=== PATIENT | male | born 2005 | race Two or more races ===

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

== ENCOUNTER 2024-02-27 13:21 | Emergency (ER) | payer OTHER ==
[~2024-02-27] VITALS: Ht 165.1 cm; Wt 53.2 kg
[~2024-02-27 13:21] MED LIST changes: +POLY17PO62 PO
[2024-02-27 13:28] VITALS: TEMP 99.9
[2024-02-27 13:42] LABS: COVID AG,FIA SOURCE NASAL SWAB
[2024-02-27 14:01] LABS: RAPID GROUP A STREP NEGATIVE (NEGATIVE)
[2024-02-27 14:14] LABS: INFLUENZA TYPE A NEGATIVE FOR TYPE A (NEGATIVE); INFLUENZA TYPE B NEGATIVE FOR TYPE B (NEGATIVE); SARS-COV2 (COVID) ANTIGEN,FIA Negative (Negative)
[2024-02-27] MEDS ORDERED: IBUP-1554 PO (15:01)
[2024-02-27] MEDS ORDERED: GUAIFDM PO (15:01)
[2024-02-27 15:05] VITALS: BP 113/71; PULSE 87; RESP 16
== END 2024-02-27 15:14 | disposition home or self-care (01) ==
LOC: EMS 13:21
DX: J06.9 Acute upper respiratory infection, unspecified (principal); Z90.49 Acquired absence of other specified parts of digestive tract; Z20.822 Contact with and (suspected) exposure to COVID-19
CPT/HCPCS: 87430; 87804; 99283

== ENCOUNTER 2024-04-27 01:12 | Emergency (ER) | payer OTHER ==
[~2024-04-27] VITALS: Ht 167.6 cm; Wt 72.7 kg
[~2024-04-27 01:12] MED LIST changes: +GUAIFDM PO; +IBUP-1554 PO
[2024-04-27 01:16] VITALS: BP 103/56; PULSE 61; RESP 20; TEMP 97.7
[2024-04-27 01:33] LABS: APPEARANCE,URINE CLEAR (CLEAR); BILIRUBIN,URINE NEGATIVE (NEGATIVE); COLOR,URINE COLORLESS (YELLOW); GLUCOSE, URINE (UA) NEGATIVE (NEGATIVE); KETONES,URINE NEGATIVE (NEGATIVE); LEUKOCYTE ESTERASE ,URINE NEGATIVE (NEGATIVE); NITRATE,URINE NEGATIVE (NEGATIVE); OCCULT BLOOD,URINE NEGATIVE (NEGATIVE); PH,URINE 6.5 (5.0-8.0); PROTEIN,URINE NEGATIVE (NEGATIVE); SPECIFIC GRAVITIY, URINE 1.004 (1.003-1.030); UROBILINOGEN,URINE <=1.0 mg/dL (<=1.0)
[2024-04-27] MEDS ORDERED: PHEN-846 PO (03:27)
== END 2024-04-27 03:35 | disposition home or self-care (01) ==
LOC: EMS 01:12
DX: R30.0 Dysuria (principal); Z90.49 Acquired absence of other specified parts of digestive tract
CPT/HCPCS: 81003; 99283

== ENCOUNTER 2024-06-04 04:32 | Emergency (ER) | payer OTHER ==
[~2024-06-04] VITALS: Ht 167.6 cm; Wt 53.6 kg
[~2024-06-04 04:32] MED LIST changes: +PHEN-846 PO
[2024-06-04 04:38] VITALS: TEMP 98.4
[2024-06-04 07:40] LABS: BASOPHILS % (AUTO) 0.6 % (0.0-2.0); EOSINOPHILS % (AUTO) 3.3 % (1.0-6.0); HEMATOCRIT 44.1 % (41-53); HEMOGLOBIN 14.9 g/dL (13.5-17.5); LYMPHOCYTES # (AUTO) 2.4 K/uL (1.0-4.8); LYMPHOCYTES % (AUTO) 38.9 % (22.0-44.0); MEAN CORPUSCULAR HEMOGLOBIN 28.5 pg (26.0-34.0); MEAN CORPUSCULAR HGB CONC 33.9 G/dL (31.0-37.0); MEAN CORPUSCULAR VOLUME 84 fL (80-100); MONOCYTES # (AUTO) 0.5 K/uL (0.1-1.0); MONOCYTES % (AUTO) 7.8 % (2.0-9.0); NEUTROPHILS # (AUTO) 3.1 K/uL (1.8-7.7); NEUTROPHILS % (AUTO) 49.4 % (40.0-70.0); PLATELET COUNT (AUTO) 221 K/uL (150-450); RED BLOOD CELL COUNT(AUTO) 5.24 MIL/uL (4.50-5.90); RED CELL DISTRIBUTION WIDTH 13.4 % (11.5-14.5); WHITE BLOOD COUNT (AUTO) 6.3 K/uL (4.5-11.0)
[2024-06-04 07:53] LABS: ANION GAP 7 mmol/L (8-16); CALCIUM, TOTAL 9.3 mg/dL (8.8-10.5); CARBON DIOXIDE 30 mmol/L (22-29); CHLORIDE 102 mmol/L (98-107); CREATININE 0.83 mg/dL (0.60-1.30); GLOMERULAR FILTR. RATE CALC > 60 mL/min (>60); GLUCOSE,RANDOM 99 mg/dL (70-110); SODIUM SERUM 139 mmol/L (136-145); UREA NITROGEN, BLOOD 9 mg/dL (7-18)
[2024-06-04 08:27] LABS: APPEARANCE,URINE CLEAR (CLEAR); BILIRUBIN,URINE NEGATIVE (NEGATIVE); COLOR,URINE COLORLESS (YELLOW); GLUCOSE, URINE (UA) NEGATIVE (NEGATIVE); KETONES,URINE NEGATIVE (NEGATIVE); LEUKOCYTE ESTERASE ,URINE NEGATIVE (NEGATIVE); NITRATE,URINE NEGATIVE (NEGATIVE); OCCULT BLOOD,URINE NEGATIVE (NEGATIVE); PROTEIN,URINE NEGATIVE (NEGATIVE); SPECIFIC GRAVITIY, URINE 1.004 (1.003-1.030); UROBILINOGEN,URINE <=1.0 mg/dL (<=1.0)
[2024-06-04 08:45] VITALS: BP 120/59; PULSE 59; RESP 16; O2SAT 98
== END 2024-06-04 09:04 | disposition home or self-care (01) ==
LOC: EMS 04:33
DX: R30.0 Dysuria (principal); Z90.49 Acquired absence of other specified parts of digestive tract
CPT/HCPCS: 80048; 81003; 85025; 99283